=== PATIENT | female | born 1945 | race Caucasian/White ===

== ENCOUNTER 2020-03-28 18:59 | Inpatient (IN) | payer MEDICARE, OTHER ==
[~2020-03-28] VITALS: Ht 152.4 cm; Wt 82.4 kg
[2020-03-28 22:01] LABS: Basophils # (auto) 0 10 ^3/uL (0-0.2); Basophils % (auto) 0.3 % (0.0-2.0); Eosinophils # (auto) 0.1 10 ^3/uL (0-0.8); Eosinophils % (auto) 0.8 % (0.0-7.0); Hematocrit 40.3 % (36.0-46.0); Hemoglobin 13.3 g/dL (12.2-16.2); Lymphocytes % (auto) 15.7 % (10.0-50.0); Mean Corpuscular Hemoglobin 30.4 pg (28.0-32.0); Mean Corpuscular Hgb Conc. 32.9 g/dL (32.0-36.0); Mean Corpuscular Volume 92.2 fL (80.0-100.0); Monocytes # (auto) 0.9 10 ^3/uL (0-1.3); Monocytes % (auto) 7.3 % (0.0-12.0); Neutrophils # (auto) 9.7 10 ^3/uL (1.6-8.6); Neutrophils % (auto) 75.9 % (37.0-80.0); Platelet Count (auto) 267 10^3/uL (140-450); Red Blood Cells 4.37 10^6/uL (4.0-5.20); Red Cell Distribution Width 13.6 % (11.8-14.3); White Blood Cell 12.7 10^3/uL (4.4-10.8)
[2020-03-28 22:26] LABS: Alanine Aminotransferase 25 U/L (13-56); Albumin 3.1 g/dL (3.4-5.0); Anion Gap 7 (5-15); Aspartate Aminotransferase 18 U/L (15-37); BUN/Creatinine Ratio 18.3; Blood Alcohol < 3.0 mg/dL (0-5); Blood Urea Nitrogen 13 mg/dL (7-18); Calcium 9.4 mg/dL (8.5-10.1); Carbon Dioxide 27 mmol/L (21-32); Chloride 107 mmol/L (98-107); GFR African American 101 mL/min; GFR Non-African American 83 mL/min; Glucose 81 mg/dL (74-106); Potassium 3.9 mmol/L (3.5-5.1); Sodium 141 mmol/L (136-145)
[2020-03-28 22:33] LABS: Alkaline Phosphatase 74 U/L (45-117); Bilirubin, Total 0.3 mg/dL (0.2-1.0); Total Protein 7.4 g/dL (6.4-8.2)
[2020-03-29] MEDS ORDERED: HYDROcodone-ACET 5/325MG TAB PO PRN (05:45)
[2020-03-29] MEDS ORDERED: MORPHINE SULF INJ 2 MG/ML SYRINGE 1ML IV PRN ×2 (05:45→11:30)
[2020-03-29] MEDS ORDERED: MORPHINE SULFATE 4 MG/ML SYR/VIAL IV PRN (05:45)
[2020-03-29] MEDS ORDERED: DOCUSATE SOD 100 MG CAP PO PRN (05:45)
[2020-03-29] MEDS ORDERED: ONDANSETRON HCL 4 MG/2 ML VIAL IV PRN (05:45)
[2020-03-29] MEDS ORDERED: NITROGLYCERIN 0.4 MG SL TAB SL PRN (05:45)
[2020-03-29] MEDS ORDERED: DEXTROSE (50%) 50ML SYRG IV PRN (06:00)
[2020-03-29] MEDS: SODIUM CHLOR 0.9% PF (SALINE LOCK) 10ML VIAL/SYR IV SCH ×3 (06:30→22:45)
[2020-03-29] MEDS: InsuLIN REG 1unit/0.01ml Soln (100units/ml) SC SCH ×4 (07:00→22:46)
[2020-03-29] MEDS: ACCU-CHEK COMFORT CURVE STRIP VI SCH ×4 (07:04→22:46)
[2020-03-29 07:38] LABS: Basophils # (auto) 0 10 ^3/uL (0-0.2); Basophils % (auto) 0.4 % (0.0-2.0); Eosinophils # (auto) 0.2 10 ^3/uL (0-0.8); Eosinophils % (auto) 2.1 % (0.0-7.0); Hemoglobin 12.7 g/dL (12.2-16.2); Lymphocytes # (auto) 1.5 10 ^3/uL (0.4-5.4); Lymphocytes % (auto) 18.9 % (10.0-50.0); Mean Corpuscular Hemoglobin 29.9 pg (28.0-32.0); Mean Corpuscular Hgb Conc. 32.5 g/dL (32.0-36.0); Mean Corpuscular Volume 92.1 fL (80.0-100.0); Monocytes # (auto) 0.8 10 ^3/uL (0-1.3); Monocytes % (auto) 9.9 % (0.0-12.0); Neutrophils # (auto) 5.5 10 ^3/uL (1.6-8.6); Neutrophils % (auto) 68.7 % (37.0-80.0); Platelet Count (auto) 239 10^3/uL (140-450); Red Blood Cells 4.23 10^6/uL (4.0-5.20); Red Cell Distribution Width 13.7 % (11.8-14.3); White Blood Cell 8.1 10^3/uL (4.4-10.8)
[2020-03-29 07:57] LABS: Albumin 2.8 g/dL (3.4-5.0); Calcium 9.2 mg/dL (8.5-10.1); Potassium 3.8 mmol/L (3.5-5.1)
[2020-03-29 08:00] LABS: BUN/Creatinine Ratio 14.7
[2020-03-29 08:02] LABS: Bilirubin, Total 0.4 mg/dL (0.2-1.0); Total Protein 6.8 g/dL (6.4-8.2)
[2020-03-29 08:38] LABS: Urine Bacteria FEW /hpf (None Seen); Urine Blood Negative /uL (Negative); Urine Mucus FEW (None Seen); Urine WBC <1 /hpf (0 - 5)
[2020-03-29] MEDS: cefTRIAXone 1GM/50ML D5W 50 ML IV SCH (09:29)
[2020-03-29] MEDS: ASCORBIC ACID 500 MG TAB PO SCH ×2 (09:30→22:46)
[2020-03-29] MEDS: ZINC SULFATE 220mg CAP or TAB PO SCH (09:30)
[2020-03-29] MEDS: FAMOTIDINE 20 MG TAB PO SCH ×2 (09:30→22:46)
[2020-03-29] MEDS: MULTIPLE VITAMIN TAB PO SCH (09:30)
[2020-03-29] MEDS ORDERED: ENOXAPARIN SOD 40 MG/0.4 ML SYRINGE SC SCH (10:00)
--- NOTE | 2020-03-29 10:11 | NUR ---
Telemetry admit from ER DOUGIE GOEL admitted to Telemetry unit after SBAR received. Patient oriented to AURORA JASSO RN primary RN, TELE unit, room 276, bed B, and unit policies regarding patient care and visiting hours. Patient now on continuous telemetry monitoring, tele box # [id number]. Patient placed on bedside oxygen, weighed by bedscale and encouraged to call if they need something. All questions and concerns addressed, patient verbalized understanding.
[2020-03-29 11:12] VITALS: BP 140/62
--- NOTE | 2020-03-29 11:50 | NUR ---
MRSA SENT TO LAB
[2020-03-29] MEDS: ACETAMINOPHEN 325 MG TAB PO PRN (14:26)
[2020-03-29 17:00] VITALS: BP 129/50
--- NOTE | 2020-03-29 18:11 | NUR ---
MD SALEEM ROUNDKVNG. PATIENT REQUESTING FAMILY TO SEND PHOTO OF HOME MEDS FOR COMPLETION OF MED REC.
[2020-03-29] MEDS ORDERED: METO25TA5 PO (18:20)
[2020-03-29] MEDS ORDERED: ESCI10TA PO (18:20)
[2020-03-29] MEDS ORDERED: METF-371 PO (18:20)
[2020-03-29] MEDS ORDERED: GABA100C9 PO (18:20)
[2020-03-29] MEDS ORDERED: GLIM4TAB42 PO (18:20)
[2020-03-29] MEDS ORDERED: ATO40T PO (18:20)
[2020-03-29] MEDS ORDERED: FAMO-12 PO (18:20)
[2020-03-29] MEDS ORDERED: LOSA-69 PO (18:20)
[2020-03-29] MEDS ORDERED: DABI75CA6 PO (18:20)
--- NOTE | 2020-03-29 18:21 | NUR ---
MED REC COMPLETE.
--- NOTE | 2020-03-29 18:42 | NUR ---
CARE ENDORSED TO NOC RN.
[2020-03-29 22:00] VITALS: BP 151/75
--- NOTE | 2020-03-30 02:28 | NUR ---
Patient was seen ambulating in the halls with an unsteady gait and some confusion. After being asked a few times the patient did respond with her name, where she is and the year. She was not sure why she came to the hospital. Reoriented patient to why she came to the hospital, she verbalized understanding. Patient assisted back to bed, bed alarm turned on, call light is within reach. Will continue to monitor.
[2020-03-30 05:00] VITALS: BP 156/76
[2020-03-30 06:02] LABS: Hematocrit 39.3 % (36.0-46.0); Hemoglobin 12.8 g/dL (12.2-16.2); Mean Corpuscular Hemoglobin 30.1 pg (28.0-32.0); Mean Corpuscular Hgb Conc. 32.5 g/dL (32.0-36.0); Mean Corpuscular Volume 92.4 fL (80.0-100.0); Platelet Count (auto) 209 10^3/uL (140-450); Red Blood Cells 4.25 10^6/uL (4.0-5.20); Red Cell Distribution Width 13.7 % (11.8-14.3); White Blood Cell 5.5 10^3/uL (4.4-10.8)
[2020-03-30 06:21] LABS: Basophils % (manual) 0 (0.0-2.0); Blast Cells 0; Metamyelocytes % 0; Promyelocytes % 0; Reactive Lymphocytes 0
[2020-03-30 06:29] LABS: Potassium 3.7 mmol/L (3.5-5.1)
[2020-03-30 06:34] LABS: BUN/Creatinine Ratio 16.3; Calcium 9.3 mg/dL (8.5-10.1)
[2020-03-30 06:37] LABS: Bilirubin, Total 0.2 mg/dL (0.2-1.0); Total Protein 6.9 g/dL (6.4-8.2)
[2020-03-30] MEDS: InsuLIN REG 1unit/0.01ml Soln (100units/ml) SC SCH ×4 (06:39→22:47)
[2020-03-30] MEDS: SODIUM CHLOR 0.9% PF (SALINE LOCK) 10ML VIAL/SYR IV SCH ×3 (06:39→22:24)
[2020-03-30] MEDS: ACCU-CHEK COMFORT CURVE STRIP VI SCH ×4 (06:39→22:24)
--- NOTE | 2020-03-30 07:25 | NUR ---
OPENING SHIFT NOTE: PATIENT ASLEEP IN BED, EASILY AWOKEN. PATIENT UPDATED ON PLAN OF CARE AND ADDRESSED CONCERNS, PATIENT REPORTS SHE, "NEEDS A BED CHANGE BECAUSE I HAD AN ACCIDENT." PATIENT'S GOWN WET. ASSISTED TO COMMODE WHILE FULL LINEN CHANGE COMPLETED. PATIENT A/OX3, FORGETFUL. DRY COUGH NOTED FROM PATIENT, REPORTS NOT FEELING SO WELL. FALL PRECAUTIONS AND CALL LIGHT IN PLACE. WILL CONTINUE TO MONITOR.
--- NOTE | 2020-03-30 07:54 | NUR ---
JERED WALKED TO LAB.
[2020-03-30] MEDS: ZINC SULFATE 220mg CAP or TAB PO SCH (08:48)
[2020-03-30] MEDS: cefTRIAXone 1GM/50ML D5W 50 ML IV SCH (08:48)
[2020-03-30] MEDS: FAMOTIDINE 20 MG TAB PO SCH ×2 (08:48→22:24)
[2020-03-30] MEDS: MULTIPLE VITAMIN TAB PO SCH (08:49)
[2020-03-30] MEDS: ASCORBIC ACID 500 MG TAB PO SCH ×2 (08:49→22:24)
[2020-03-30] MEDS: CYANOCOBALAMIN 500 MCG TAB PO SCH (08:49)
[2020-03-30] MEDS: ACETAMINOPHEN 325 MG TAB PO PRN ×2 (08:50→18:05)
[2020-03-30 09:00] VITALS: BP 124/78
[2020-03-30] MEDS ORDERED: ASPirin 81 mg TAB PO SCH (10:00)
[2020-03-30 12:00] LABS: Band Neutrophils % (manual) 1; Eosinophils % (manual) 1 (0-7); Lymphocytes % (manual) 18 (10.0-50.0); Monocytes % (manual) 15 (0-12); Myelocytes % 1
--- NOTE | 2020-03-30 12:42 | NUR ---
Family updated on covid positive status.
--- NOTE | 2020-03-30 12:43 | NUR ---
PATIENT TO BE TRANSFERRED TO DR. GALVEZ TO [facility] ROOM 33, REPORT GIVEN TO AGNES VÁSQUEZ.
--- NOTE | 2020-03-30 12:50 | NUR ---
Patient arrived to East unit. Patient arrived to east, no s/s of distress noted at this time. Patient denies pain. Will continue care.
[2020-03-30 17:00] VITALS: BP 151/68
--- NOTE | 2020-03-30 20:00 | NUR ---
Opening Shift Note Assumed care of patient, awake and alert x4. Patient denies pain or shortness of breath at this time. No sign/symptoms of distress noted or verbalized at this time. Instructed on plan of care and encouraged patient to call for assistance as needed, patient verbalized understanding. Bed is locked in lowest position, side rails x 2 are up, and call light is within reach.
[2020-03-30 23:01] VITALS: BP 132/91
[2020-03-31 05:29] VITALS: BP 157/80
[2020-03-31] MEDS: ACCU-CHEK COMFORT CURVE STRIP VI SCH ×4 (06:34→21:50)
[2020-03-31] MEDS: InsuLIN REG 1unit/0.01ml Soln (100units/ml) SC SCH ×4 (06:34→22:00)
[2020-03-31] MEDS: SODIUM CHLOR 0.9% PF (SALINE LOCK) 10ML VIAL/SYR IV SCH ×3 (06:34→21:49)
--- NOTE | 2020-03-31 07:30 | NUR ---
opening note Assumed care of patient from NOC RN Clarissa. Patient is AOx4, no s/s of distress noted. Bed is in lowest locked position, call light within reach and side rails up x2. Updated patient on plan of care and patient verbalized understanding. Will continue to monitor q1hr and PRN.
--- NOTE | 2020-03-31 07:38 | NUR ---
Respiratory note: PT IS AWAKE, AND ALERT. NO RESPIRATORY DISTRESS NOTED. SPO2 96% ON RA, HR 71, RR 19, BS CLEAR BILATERALLY. NO FURTHER RESPIRATORY INTERVENTIONS INDICATED AT THIS TIME. WILL CONTINUE TO MONITOR PT. CHARTING COMPLETE FROM OUTSIDE OF PT ROOM PER COVID-19 PRECAUTIONS/PROTOCOL.
--- NOTE | 2020-03-31 08:23 | NUR ---
MRI Received call from MRI. Per Dg with MRI patient is not a candidate for MRI at this time due to recent placement of a pacemaker. Dg stated "we can't scan the patient for 90 days." Will inform attending MD.
[2020-03-31 09:00] VITALS: BP 108/92
[2020-03-31] MEDS: cefTRIAXone 1GM/50ML D5W 50 ML IV SCH (09:42)
[2020-03-31] MEDS: ZINC SULFATE 220mg CAP or TAB PO SCH (09:43)
[2020-03-31] MEDS: MULTIPLE VITAMIN TAB PO SCH (09:43)
[2020-03-31] MEDS: ASCORBIC ACID 500 MG TAB PO SCH ×2 (09:43→21:50)
[2020-03-31] MEDS: CYANOCOBALAMIN 500 MCG TAB PO SCH (09:44)
[2020-03-31] MEDS: FAMOTIDINE 20 MG TAB PO SCH ×2 (10:02→21:50)
[2020-03-31] MEDS ORDERED: ASPirin 81 mg TAB PO ONE (10:45)
[2020-03-31] MEDS ORDERED: ENOXAPARIN SOD 40 MG/0.4 ML SYRINGE SC ONE (10:45)
--- NOTE | 2020-03-31 11:50 | NUR ---
Physician rounding Dr. Lloyd at bedside. MD updated patient on plan of care, and patient verbalized understanding. No new orders received. Will continue care.
--- NOTE | 2020-03-31 12:11 | NUR ---
notified Provided MD with patients Neurologist's in [place] information. Patients neurologist is Debbie Britton MD with [facility]. [phone] and fax is [phone].
--- NOTE | 2020-03-31 12:55 | NUR ---
care endorsed to FAHAD multani.
[2020-03-31 13:00] VITALS: BP 120/65
[2020-03-31 17:00] VITALS: BP 137/81
[2020-03-31] MEDS: ACETAMINOPHEN 325 MG TAB PO PRN (21:04)
[2020-03-31 22:00] VITALS: BP 134/82
[2020-03-31] MEDS ORDERED: ATORVASTATIN 20 MG TAB PO SCH (22:00)
--- NOTE | 2020-03-31 22:04 | NUR ---
Respiratory note: PT SEEN AND ASSESSED AT THIS TIME. PT DISPLAYING NO RESPIRATORY DISTRESS. HR 60 RR 18 SP02 91% ON ROOM AIR.
[2020-04-01 05:00] VITALS: BP 132/71
[2020-04-01] MEDS: SODIUM CHLOR 0.9% PF (SALINE LOCK) 10ML VIAL/SYR IV SCH (06:00)
[2020-04-01 06:13] LABS: Basophils # (auto) 0 10 ^3/uL (0-0.2); Basophils % (auto) 0.4 % (0.0-2.0); Eosinophils # (auto) 0.1 10 ^3/uL (0-0.8); Eosinophils % (auto) 2.3 % (0.0-7.0); Hematocrit 41.5 % (36.0-46.0); Hemoglobin 13.7 g/dL (12.2-16.2); Lymphocytes # (auto) 1.9 10 ^3/uL (0.4-5.4); Lymphocytes % (auto) 48.7 % (10.0-50.0); Mean Corpuscular Hemoglobin 30.3 pg (28.0-32.0); Mean Corpuscular Hgb Conc. 33.1 g/dL (32.0-36.0); Mean Corpuscular Volume 91.5 fL (80.0-100.0); Monocytes # (auto) 0.7 10 ^3/uL (0-1.3); Monocytes % (auto) 16.7 % (0.0-12.0); Neutrophils # (auto) 1.3 10 ^3/uL (1.6-8.6); Neutrophils % (auto) 31.9 % (37.0-80.0); Nucleated Red Blood Cells % 0.3 %; Platelet Count (auto) 216 10^3/uL (140-450); Red Blood Cells 4.53 10^6/uL (4.0-5.20); Red Cell Distribution Width 13.4 % (11.8-14.3); White Blood Cell 3.9 10^3/uL (4.4-10.8)
[2020-04-01 06:29] LABS: Albumin 2.7 g/dL (3.4-5.0); BUN/Creatinine Ratio 17.3; Potassium 3.8 mmol/L (3.5-5.1)
[2020-04-01 06:34] LABS: Bilirubin, Total 0.3 mg/dL (0.2-1.0); CRP High Sensitivity 0.24 mg/dL (< 0.3); Total Protein 6.7 g/dL (6.4-8.2)
[2020-04-01] MEDS: InsuLIN REG 1unit/0.01ml Soln (100units/ml) SC SCH ×2 (06:56→11:15)
[2020-04-01] MEDS: ACCU-CHEK COMFORT CURVE STRIP VI SCH ×2 (07:00→11:12)
--- NOTE | 2020-04-01 07:05 | NUR ---
IV insertion IV access obtained, via clean sterile technique by inserting 22 gauge catheter at RIGHT FOREARM after 1 attempt. IV secured properly. No trauma to site. Patient tolerated well.
--- NOTE | 2020-04-01 07:30 | NUR ---
OPENING NOTE ASSUMED CARE OF PT. ALERT AND ORIENTED. NO S/S OF SOB/DISTRESS NOTED. BED SET TO LOWEST POSITION/LOCKED. BEDSIDE RAILS UP X2. CALL LIGHT WITHIN REACH. INSTRUCTED PT TO CALL FOR ASSISTANCE. UPDATE ON POC. PT VERBALIZED UNDERSTANDING. WILL CONTINUE TO MONITOR Q1HR AND PRN FOR CHANGES.
[2020-04-01 09:00] VITALS: BP 145/69
[2020-04-01] MEDS ORDERED: ENOXAPARIN SOD 40 MG/0.4 ML SYRINGE SC SCH (10:00)
[2020-04-01] MEDS ORDERED: ASPirin 81 mg TAB PO SCH (10:00)
[2020-04-01] MEDS: ZINC SULFATE 220mg CAP or TAB PO SCH (11:11)
[2020-04-01] MEDS: FAMOTIDINE 20 MG TAB PO SCH (11:11)
[2020-04-01] MEDS: CYANOCOBALAMIN 500 MCG TAB PO SCH (11:11)
[2020-04-01] MEDS: ASCORBIC ACID 500 MG TAB PO SCH (11:11)
[2020-04-01] MEDS: MULTIPLE VITAMIN TAB PO SCH (11:11)
[2020-04-01 12:43] VITALS: BP 132/66
[2020-04-01 13:00] VITALS: BP 132/66
--- NOTE | 2020-04-01 14:37 | NUR ---
Discharge Discharge instructions given as ordered. Patient is to follow up at [facility] on 04/18/2020 at 9:00AM. [address], [place] [address]. Ext [phone]. All questions and concerns addressed. Patient verbalized understanding. IV removed with catheter intact, pressure dressing applied. Telemetry unit returned to ICU.
--- NOTE | 2020-04-01 16:13 | NUR ---
Patient taken to vehicle via wheelchair with all personal belongings, accompanied by staff and family member. No distress noted at time of departure.
--- NOTE | 2020-04-01 16:16 | NUR ---
SS consult for HH for PT and vitals management. Per pt she was on service with [facility] prior to admission ( [phone]). Faxed clinical information and pt accepted to start service 24 hours after discharge.
== END 2020-04-01 16:14 | disposition home health service (06) | DRG 69 ==
LOC: EDBD 18:59 → ER 18:59 → TELE 19:00 → TELE-WESTW 03-29 10:04 → TELE-EAST 03-30 12:50
PROVIDERS: ADMIT Nurse Practitioner Family; ATTEND Internal Medicine
DX: G45.9 Transient cerebral ischemic attack, unspecified (principal); U07.1 COVID-19; D72.829 Elevated white blood cell count, unspecified; E86.0 Dehydration; I10 Essential (primary) hypertension; I48.91 Unspecified atrial fibrillation; E11.9 Type 2 diabetes mellitus without complications; F17.200 Nicotine dependence, unspecified, uncomplicated; Z79.899 Other long term (current) drug therapy; Z81.8 Family history of other mental and behavioral disorders; Z82.3 Family history of stroke; Z82.49 Family history of ischemic heart disease and other diseases of the circulatory system; Z83.3 Family history of diabetes mellitus; Z90.710 Acquired absence of both cervix and uterus; Z95.0 Presence of cardiac pacemaker; Z86.73 Personal history of transient ischemic attack (TIA), and cerebral infarction without residual deficits; R00.0 Tachycardia, unspecified; R00.1 Bradycardia, unspecified; R56.9 Unspecified convulsions
CPT/HCPCS: 36415; 70450; 71045; 80053; 80061; 80320; 81001; 82728; 82962; 83036; 83615; 84443; 84484; 85007; 85025; 85027; 85379; 86141; 87081; 93005; 93886; 96365; 96372; G0378; J0696; J1815